=== PATIENT | female | born 1995 | race Caucasian/White ===

== ENCOUNTER → 2018-11-09 | Outpatient (CLI) | payer BC, OTHER ==
--- NOTE | 2018-11-11 07:50 | 24HR ---
[facility] [address] [place] [address] 24 HR ELECTROCARDIOGRAM REPORT Name: KLAUDIA GARCÍA Room #: REG CL [facility]#: [id number] ������������� Admission: 11/09/18 ������������� Attend Phys: Faheem Santillan MD Discharge: ��� ������������� ��� Date of : 89 Date of Service: 11/09/18 1425 �� Report #: [id number] �������� ��������������������������������������������[id number] THIS REPORT FOR: //name// [facility] Test Date: 2018-11-09 Test Time: 14:25:00 Pat Name: KLAUDIA GARCÍA Department: Room: Gender: Child Nutrition Manager: : 1995 Requested By: Faheem Santillan Order Number: [id number] Venessa MD: Rocky Valladares Interpretive Statements 1. The study duration was 24 hours and the technical quality was good. Predominant rhythm sinus rhythm with sinus arrhythmia at an average heart rate of 73 bpm, range 46-135 bpm. Longest RR interval 1.4 seconds. 2. Rare, isolated atrial premature complexes. No episodes of atrial fibrillation or atrial flutter. No heart block. No pauses. No PSVT. 3. No ventricular ectopy. No ventricular tachycardia. 4. No symptoms reported in the diary. Electronically Signed On 11-11-2018 7:50:23 CDT by Rocky Valladares [email or web address] ��������������������������������������������� <ELECTRONICALLY SIGNED> ���������������������������������������� By: Rocky Valladares MD, [facility] ��������������������������������������������� 11/11/18 0750 1425 1425 Rocky Valladares MD, [facility] /EPI
== END ==
LOC: CV 09:15
DX: R00.0 Tachycardia, unspecified (principal); R00.2 Palpitations